=== PATIENT | male | born 1970 | race Caucasian/White ===

== ENCOUNTER → 2018-07-19 | Outpatient (CLI) | payer OTHER ==
--- NOTE | 2018-07-19 15:58 | KCIC ---
Testicular ultrasound dated 07/19/2018. No comparison available. Clinical data indication: Testicular pain and left-sided lump for 5 months. FINDINGS: Right testicle measures 5.6 x 3.3 x 2.8 cm. Left testicle measures 5.5 x 3.5 x 2.3 cm. No apparent testicular mass. Normal color flow and waveforms to both testicles. There scattered microcalcifications. There is a small epididymal head cysts on the left measuring up to 6 mm. Epididymides are otherwise unremarkable. Small left-sided varicocele. Small right-sided hydrocele. IMPRESSION: 1. Normal sonographic appearance of the testicles. 2. Small epididymal head cyst on the left. 3. Small left-sided varicocele and small right-sided hydrocele. Electronically signed by: Kings Joseph MD (07/19/2018 3:55 PM) [id number]
== END | disposition home or self-care (01) ==
LOC: KCIC US 15:07
PROVIDERS: ATTEND Nurse Practitioner Family
DX: N50.3 Cyst of epididymis (principal); I86.1 Scrotal varices; N43.3 Hydrocele, unspecified
CPT/HCPCS: 76870